=== PATIENT | male | born 1975 | race African-American/Black ===

== ENCOUNTER 2016-11-11 22:15 | Emergency (ER) | payer OTHER | END 2016-11-12 00:25 | disposition home or self-care (01) | LOC: CFTX 22:15 → CED 22:15 → CFTX 23:48 | DX: S05.01XA Injury of conjunctiva and corneal abrasion without foreign body, right eye, initial encounter (principal); F17.210 Nicotine dependence, cigarettes, uncomplicated; X58.XXXA Exposure to other specified factors, initial encounter | CPT/HCPCS: 99283 ==